=== PATIENT | female | born 1980 | race Caucasian/White ===

== ENCOUNTER 2017-10-25 07:19 | Day surgery (SDC) | payer BC ==
[~2017-10-25 07:19] MED LIST: EPHEDrine SULFATE 50 MG/5 ML SYG
[2017-10-25] MEDS ORDERED: FENTAnyl 50 MCG/ML VIAL ×2 (09:09→09:30)
[2017-10-25] MEDS ORDERED: MIDAZOLAM 1 MG/ML 2 ML INJ (09:09)
[2017-10-25] MEDS ORDERED: PROPOFOL 20 ML (09:09)
[2017-10-25] MEDS ORDERED: ROCURONIUM 50 MG INJ (09:09)
[2017-10-25] MEDS ORDERED: METOCLOPRAMIDE 10 MG INJ IV (09:30)
[2017-10-25] MEDS ORDERED: FENTAnyl 50 MCG/ML VIAL IV ×3 (09:30)
[2017-10-25] MEDS ORDERED: MEPERIDINE 25 MG INJ IV (09:30)
[2017-10-25] MEDS ORDERED: OXYCODONE/ACETAMINOPHEN (5/325) TAB PO ×2 (09:30)
[2017-10-25] MEDS ORDERED: DIPHENHYDRAMINE 50 MG INJ IV (09:30)
[2017-10-25] MEDS ORDERED: LABETALOL HCL 20MG INJ IV (09:30)
[2017-10-25] MEDS ORDERED: LIDOCAINE 1%/EPI (1:100,000) (MDV) 20 ML (09:30)
[2017-10-25] MEDS ORDERED: HYDROmorphONE (0.2 MG/ML) 10ML SYG IV ×3 (09:30)
[2017-10-25] MEDS ORDERED: ONDANSETRON 4 MG INJ IV (09:30)
[2017-10-25] MEDS ORDERED: EPHEDrine SULFATE 50 MG/5 ML SYG IV (09:30)
[2017-10-25] MEDS ORDERED: ONDANSETRON 4 MG INJ (09:31)
[2017-10-25] MEDS ORDERED: METOCLOPRAMIDE 10 MG INJ (09:31)
[2017-10-25] MEDS ORDERED: DEXAMETHASONE 4 MG/ML 1 ML INJ (09:31)
[2017-10-25] MEDS ORDERED: KETOROLAC 30 MG INJ (09:32)
[2017-10-25] MEDS: COCAINE 4% 4 ML TOP (09:38)
[2017-10-25] MEDS: LIDOCAINE 1%/EPI (1:100,000) (MDV) 20 ML INJ (09:39)
[2017-10-25] MEDS ORDERED: SUGAMMADEX SODIUM 200 MG/2 ML VIAL IV (10:01)
[2017-10-25] MEDS: NEOMYC/POLYMYX/BACIT 30 GM OINT (10:04)
[2017-10-25] MEDS: HYDROCODONE/APAP (7.5/325) TAB PO (11:26)
== END 2017-10-25 12:10 | disposition home or self-care (01) ==
LOC: SDS 07:19
DX: J32.0 Chronic maxillary sinusitis (principal); J32.2 Chronic ethmoidal sinusitis
CPT/HCPCS: 31255; 88304